=== PATIENT | female | born 1955 | race African-American/Black ===

== ENCOUNTER 2018-02-16 15:39 | Emergency (ER) | payer OTHER ==
[~2018-02-16] VITALS: Ht 167.6 cm; Wt 72.6 kg
--- NOTE | ~2018-02-16 | EKG ---
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
[~2018-02-16 15:39] MED LIST: HALDOL DEC100 MG/1 M IM; HYDROCHLOROTHIA25 M2 PO; SYNTHROID150 MCG PO
[2018-02-16 17:18] LABS: ABSOLUTE NEUTROPHILS 4.1 thou/uL (1.4-8.2); BASOPHILS 1.1 % (0.0-2.0); EOSINOPHILS 0.6 % (0.0-3.0); HEMATOCRIT 45.2 % (37.0-47.0); HEMOGLOBIN 15.5 gm/dL (12.0-15.0); LYMPHOCYTES 54.3 % (24.0-44.0); MCH 30.1 pg (26.0-34.0); MCHC 34.3 g/dL (28.0-37.0); MCV 87.7 fL (80.0-100.0); MONOCYTES 6.1 % (1.0-8.0); PLATELET COUNT 187 thou/uL (150-400); POLYS 37.9 % (36.0-66.0); RBC 5.15 mil/uL (4.20-5.00); RDW 13.9 % (10.5-14.5); WBC 10.8 thou/uL (4.0-11.0)
[2018-02-16 17:26] LABS: ANION GAP 11 mmol/L (7-16); BUN 9 mg/dL (7-18); CALCIUM 9.4 mg/dL (8.5-10.1); CHLORIDE 105 mmol/L (98-107); CO2 24 mmol/L (21-32); CREATININE 0.7 mg/dL (0.6-1.0); GLUCOSE 95 mg/dL (74-106); POTASSIUM 3.7 mmol/L (3.5-5.1); SODIUM 140 mmol/L (136-145)
[2018-02-16 17:34] LABS: TROPONIN-I <0.06 ng/mL (<0.06)
[2018-02-16] MEDS ORDERED: MOBIC15 MG PO (18:07)
[2018-02-16] MEDS ORDERED: FLEXERIL PO (18:07)
[2018-02-16 18:44] VITALS: BP 177/69
== END 2018-02-16 18:42 | disposition home or self-care (01) ==
LOC: ER 15:39
PROVIDERS: Physician Assistant
DX: M54.12 Radiculopathy, cervical region (principal); F17.210 Nicotine dependence, cigarettes, uncomplicated; I10 Essential (primary) hypertension; Z88.0 Allergy status to penicillin

== ENCOUNTER 2018-10-01 21:01 | Emergency (ER) | payer OTHER ==
[~2018-10-01] VITALS: Ht 162.6 cm; Wt 72.6 kg
[~2018-10-01 21:01] MED LIST changes: +FLEXERIL PO; +MOBIC15 MG PO; +TESSALON PERLE100 MG PO
[2018-10-01 21:52] LABS: ABSOLUTE NEUTROPHILS 6.4 thou/uL (1.4-8.2); BASOPHILS 0.8 % (0.0-2.0); EOSINOPHILS 0.5 % (0.0-3.0); HEMATOCRIT 44.5 % (37.0-47.0); HEMOGLOBIN 15.2 gm/dL (12.0-15.0); LYMPHOCYTES 42.8 % (24.0-44.0); MCH 30.1 pg (26.0-34.0); MCHC 34.1 g/dL (28.0-37.0); MCV 88.4 fL (80.0-100.0); MONOCYTES 6.8 % (1.0-8.0); PLATELET COUNT 213 thou/uL (150-400); POLYS 49.1 % (36.0-66.0); RBC 5.04 mil/uL (4.20-5.00); RDW 13.7 % (10.5-14.5); WBC 13.1 thou/uL (4.0-11.0)
[2018-10-01 22:05] LABS: URINE BILIRUBIN NEGATIVE (Negative); URINE BLOOD NEGATIVE (Negative); URINE CLARITY CLEAR; URINE COLOR YELLOW; URINE GLUCOSE-RANDOM* NEGATIVE (Negative); URINE KETONES NEGATIVE (Negative); URINE LEUKOCYTES-REFLEX NEGATIVE (Negative); URINE NITRITE-REFLEX NEGATIVE (Negative); URINE PROTEIN (DIPSTICK) NEGATIVE (Negative); URINE SPECIFIC GRAVITY <= 1.005 (1.005-1.035); URINE UROBILINOGEN 0.2 E.U./dl (0.2-1.0)
[2018-10-01 22:24] LABS: ANION GAP 12 mmol/L (7-16); BUN 8 mg/dL (7-18); CALCIUM 9.2 mg/dL (8.5-10.1); CHLORIDE 102 mmol/L (98-107); CO2 26 mmol/L (21-32); CREATININE 0.6 mg/dL (0.6-1.0); GLUCOSE 184 mg/dL (74-106); POTASSIUM 3.9 mmol/L (3.5-5.1); SODIUM 140 mmol/L (136-145)
[2018-10-01 22:33] LABS: ALBUMIN 3.5 g/dL (3.4-5.0); MAGNESIUM 1.9 mg/dL (1.8-2.4); SGOT 27 U/L (15-37); SGPT 33 U/L (30-65); TOTAL BILIRUBIN 0.3 mg/dL (<0.1-1.0); TOTAL PROTEIN 7.6 g/dL (6.4-8.2); TROPONIN-I <0.06 ng/mL (<0.06)
[2018-10-01] MEDS ORDERED: PROAIR HFA8.5 GM INH (22:41)
[2018-10-01 22:59] VITALS: BP 198/70
--- NOTE | 2018-10-02 07:52 | EKG ---
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 : 1955 Requested By: Luke Arambula Order Number: [id number] MD: Isaias Moreira Measurements Intervals [place] Rate: 67 P: 61 NV: 132 QRS: 26 QRSD: 65 T: 152 QT: 394 QTc: 416 Interpretive Statements Sinus rhythm Abnrm T, consider ischemia, anterolateral lds Compared to ECG 02/16/2018 16:39:52 No significant change was found Electronically Signed On 10-02-2018 7:52:38 CDT by Isaias Moreira [email or web address] ��������������������������������������������� <ELECTRONICALLY SIGNED> ���������������������������������������� By: Isaias Moreira MD, [facility] ��������������������������������������������� 10/02/18 0752 28 28 Isaias Moreira MD, [facility] /EPI
== END 2018-10-01 23:00 | disposition home or self-care (01) ==
LOC: ER 21:01
PROVIDERS: Emergency Medicine
DX: B34.9 Viral infection, unspecified (principal); I10 Essential (primary) hypertension; Z90.710 Acquired absence of both cervix and uterus; F17.210 Nicotine dependence, cigarettes, uncomplicated; Z88.0 Allergy status to penicillin

== ENCOUNTER 2019-08-20 14:00 | Emergency (ER) | payer OTHER ==
[~2019-08-20] VITALS: Ht 162.6 cm; Wt 71.2 kg
[~2019-08-20 14:00] MED LIST changes: +PROAIR HFA8.5 GM INH
[2019-08-20 15:23] VITALS: BP 149/74
== END 2019-08-20 15:26 | disposition home or self-care (01) ==
LOC: ER 14:00
DX: H61.23 Impacted cerumen, bilateral (principal); I10 Essential (primary) hypertension; F17.210 Nicotine dependence, cigarettes, uncomplicated; Z90.711 Acquired absence of uterus with remaining cervical stump; Z79.899 Other long term (current) drug therapy; Z88.0 Allergy status to penicillin

== ENCOUNTER 2019-08-25 14:50 | Emergency (ER) | payer OTHER ==
[~2019-08-25] VITALS: Ht 162.6 cm; Wt 71.2 kg
[2019-08-25] MEDS ORDERED: LIDOCAINE 2%2 %/5 GM TOP (16:39)
[2019-08-25] MEDS ORDERED: VALTREX 500 MG500 M1 PO (16:39)
[2019-08-25 16:50] VITALS: BP 152/64
== END 2019-08-25 16:51 | disposition home or self-care (01) ==
LOC: ER 14:50
DX: B00.89 Other herpesviral infection (principal); F17.210 Nicotine dependence, cigarettes, uncomplicated; I10 Essential (primary) hypertension; Z88.0 Allergy status to penicillin; Z90.710 Acquired absence of both cervix and uterus; Z79.899 Other long term (current) drug therapy

== ENCOUNTER → 2019-08-26 | Outpatient (CLI) | payer OTHER ==
[~2019-08-26] MED LIST changes: +LIDOCAINE 2%2 %/5 GM TOP; +VALTREX 500 MG500 M1 PO
== END ==
LOC: MRI 11:52
DX: S43.431A Superior glenoid labrum lesion of right shoulder, initial encounter (principal); G89.29 Other chronic pain; M19.011 Primary osteoarthritis, right shoulder; X58.XXXA Exposure to other specified factors, initial encounter; Y93.89 Activity, other specified; Y92.89 Other specified places as the place of occurrence of the external cause; Y99.8 Other external cause status

== ENCOUNTER 2020-05-14 13:23 | Emergency (ER) | payer OTHER ==
[~2020-05-14] VITALS: Ht 170.2 cm; Wt 79.4 kg
[2020-05-14] MEDS ORDERED: APAP W/CODEINE1 TA2 PO (17:44)
[2020-05-14] MEDS ORDERED: CYCLOBENZAPRINE5 MG PO (17:48)
[2020-05-14 17:55] VITALS: BP 142/74
== END 2020-05-14 17:55 | disposition home or self-care (01) ==
LOC: ER 13:23
DX: S20.211A Contusion of right front wall of thorax, initial encounter (principal); M25.511 Pain in right shoulder; M54.6 Pain in thoracic spine; I10 Essential (primary) hypertension; F17.210 Nicotine dependence, cigarettes, uncomplicated; Z79.899 Other long term (current) drug therapy; Z88.0 Allergy status to penicillin; Z90.710 Acquired absence of both cervix and uterus; W01.0XXA Fall on same level from slipping, tripping and stumbling without subsequent striking against object, initial encounter; Y93.89 Activity, other specified; Y92.091 Bathroom in other non-institutional residence as the place of occurrence of the external cause; Y99.9 Unspecified external cause status

== ENCOUNTER → 2020-06-16 | Outpatient (CLI) | payer OTHER ==
[~2020-06-16] MED LIST changes: +APAP W/CODEINE1 TA2 PO; +CYCLOBENZAPRINE5 MG PO
== END ==
LOC: MRI 06-09 08:32
PROVIDERS: ATTEND Family Medicine
DX: S49.91XA Unspecified injury of right shoulder and upper arm, initial encounter (principal); M75.101 Unspecified rotator cuff tear or rupture of right shoulder, not specified as traumatic; M25.411 Effusion, right shoulder; X58.XXXA Exposure to other specified factors, initial encounter; Y93.89 Activity, other specified; Y92.89 Other specified places as the place of occurrence of the external cause; Y99.8 Other external cause status

== ENCOUNTER → 2020-09-23 | Outpatient (CLI) | payer OTHER ==
[~2020-09-23] MED LIST changes: +MELATONIN5 MG PO; +PREDNISONE 20 M20 MG PO; +PROTONIX40 M2 PO; +TYLENOL ARTHRI650 MG PO; +ZPAK PO
== END ==
LOC: ULTRA 14:14
PROVIDERS: ATTEND Family Medicine
DX: E04.8 Other specified nontoxic goiter (principal)

== ENCOUNTER → 2020-10-07 | Outpatient (CLI) | payer OTHER | LOC: SJCVCIMAG | PROVIDERS: ATTEND Family Medicine | DX: I11.9 Hypertensive heart disease without heart failure (principal); R06.00 Dyspnea, unspecified; R07.89 Other chest pain ==

== ENCOUNTER → 2021-01-25 | Outpatient (CLI) | payer OTHER | LOC: SJCVCIMAG 08:25 | PROVIDERS: ATTEND Internal Medicine | DX: I25.89 Other forms of chronic ischemic heart disease (principal); I10 Essential (primary) hypertension; R06.00 Dyspnea, unspecified; I42.2 Other hypertrophic cardiomyopathy; R01.1 Cardiac murmur, unspecified; E03.9 Hypothyroidism, unspecified; F17.200 Nicotine dependence, unspecified, uncomplicated; Z88.0 Allergy status to penicillin; Z72.89 Other problems related to lifestyle ==

== ENCOUNTER → 2021-03-08 | Outpatient (CLI) | payer OTHER ==
[~2021-03-08] VITALS: Ht 162.6 cm; Wt 68.9 kg
[~2021-03-08] MED LIST changes: +HYDROCHLOROTHIA50 MG PO; +TIZANIDINE HCL4 M1 PO
[2021-03-08 10:22] VITALS: BP 151/80
[2021-03-08 11:00] LABS: HEMATOCRIT 45.7 % (37.0-47.0); HEMOGLOBIN 15.4 gm/dL (12.0-15.0); MCH 29.7 pg (26.0-34.0); MCHC 33.7 g/dL (28.0-37.0); RBC 5.2 mil/uL (4.20-5.00); RDW 13.5 % (10.5-14.5); WBC 8.9 thou/uL (4.0-11.0)
[2021-03-08 11:07] LABS: CALCIUM 9.3 mg/dL (8.5-10.1); CREATININE 0.7 mg/dL (0.6-1.0); POTASSIUM 3.4 mmol/L (3.5-5.1)
--- NOTE | 2021-03-08 14:12 | EKG ---
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 : 1955 Requested By: Michele Shay Order Number: [id number] MD: Jony Reeves Measurements Intervals [place] Rate: 67 P: 46 VT: 142 QRS: 28 QRSD: 66 T: 154 QT: 432 QTc: 456 Interpretive Statements Sinus rhythm Probable left atrial enlargement Abnormal T, consider ischemia, diffuse leads Compared to ECG 10/01/2018 21:29:27 T-wave abnormality now present Possible ischemia still present Electronically Signed On 03-08-2021 14:11:59 RN CRITICAL CARE by Jony Reeves [email or web address] <ELECTRONICALLY SIGNED> By: Jony Reeves MD, [facility] 03/08/21 1411 1024 1024 Jony Reeves MD, FACC /EPI
--- NOTE | 2021-03-22 23:37 | CATHLAB ---
[facility] [place] [address] [place] [address] INVASIVE PROCEDURE REPORT Name: CORY MOREON [facility] #[facility] [id number] Admission: 03/08/21 Attend Phys: Michele Shay Discharge: Date of : 51 Report #: [id number] THIS REPORT FOR: cc: Francisco Javier Iraheta MD, Neal A. MD Lammoglia, Francisco J. MD ~ APPROVED REPORT Study performed: 03/08/2021 11:08:01 Patient Details Patient Status: Out-Patient Room #: The patient is a 65 year-old female Event Personnel Michele Shay Inspector Insulation, Maisha Plaza RTR Monitor, Jose Lares RTR Scrub, Deb Powers RN forecast analyst Performed Art Access - R femoral artery* Left Heart Cath w/or w/o Coronaries [id number] [facility] [address] Initial Mod Sed Same Phys/QHP Gr 351406 59102 Mod Sed Same Phys/QHP Ea 937520 Hemostasis with Manual pressure, supervision of conscious sedation Indication Positive stress test, Chest pain Procedure Narrative The Right Groin^ was infiltrated with 1% Lidocaine subcutaneous anesthesia. A PINNACLE 4FR Sheath #[id number] sheath was inserted into the RFA^. Coronary angiography was performed using coronary diagnostic catheters. The right coronary system was accessed and visualized with a JR4 catheter. The left coronary system was accessed and visualized with a JL4 catheter. The left ventricle was accessed and visualized with a JR4 catheter. The patient tolerated the procedure well and there were no complications associated with the procedure. There was no hematoma. Intraoperative Conscious Sedation Sedation start time: 11:36 Case end Time: 12:04 Versed 2 mg [facility] [address] [place] [address] INVASIVE PROCEDURE REPORT Name: CORY MORENO Room #: [facility]#: [id number] Admission: 03/08/21 Attend Phys: Michele Villela Discharge: Date of : 51 Report #: [id number] Fluoro Time: 1.50 minutes Dose: DAP 2052.50 cGycm2 299 mGy Contrast Type and Amount: Omnipaque 50 ml Diagnostic Cath Left Main moderate to large caliber vessel of normal origin trifurcates into left anterior descending, ramus intermedius, and left circumflex arteries. no high grade lesions noted LAD moderate caliber type III vessel with a small caliber first diagonal as it courses in the anterior interventricular sulcus. no significant lesions identified. Diagonal 1 small diminuitive vessel Circumflex moderate caliber nondominant vessel coursing in the AV groove posteriorly where it gives rise to s lsrge first marginal branch. the branch proceed towards the lateral apical section of the left ventricle. no significant lesions present OM1 large caliber bifurcating vesselfree of significant lesions Right Coronary small caliber dominat vessel giving risr to right ventricular branch then proceeding to give rise to a small posterior descending artery. no flow limiting lesions Ramus moderate caliber long legnth vessel without siginificant disease Left Ventriculography Left Ventriculography was not performed. Hemodynamics The aortic pressure is 156/68 mmHg with a mean of 100 mmHg. The left ventricular pressure is 159/8 mmHg with a mean of mmHg. The left ventricular end diastolic pressure is 11 mmHg. Conclusion 1. Mild plaquing noted without significant coronary artery disease 2. Normal hemodynamics Recommendations Cardiac Risk Reduction Program Medical Therapy <ELECTRONICALLY SIGNED> By: Michele Shay MD 03/22/212336 36 36 Michele Shay MD /INF
== END | disposition home or self-care (01) ==
LOC: CATH 08:20
PROVIDERS: ATTEND Internal Medicine
DX: R07.9 Chest pain, unspecified (principal); I25.10 Atherosclerotic heart disease of native coronary artery without angina pectoris; R94.39 Abnormal result of other cardiovascular function study; I10 Essential (primary) hypertension; E03.9 Hypothyroidism, unspecified; F32.9 Major depressive disorder, single episode, unspecified; I42.2 Other hypertrophic cardiomyopathy; I73.9 Peripheral vascular disease, unspecified; F17.210 Nicotine dependence, cigarettes, uncomplicated; Z98.890 Other specified postprocedural states; Z79.899 Other long term (current) drug therapy; Z90.710 Acquired absence of both cervix and uterus; Z88.0 Allergy status to penicillin